=== PATIENT | female | born 1945 | race Caucasian/White ===

== ENCOUNTER 2016-10-22 17:05 | Emergency (ER) | payer OTHER ==
[~2016-10-22] VITALS: Ht 162.6 cm; Wt 67.4 kg
[~2016-10-22 17:05] MED LIST: ANTIVERT25 MG PO; VALIUM5 MG PO; ZOFRAN4 MG PO
[2016-10-22 18:09] LABS: HEMATOCRIT 40.3 % (36.0-46.0); MCH 28.9 PG (29.0-34.0); MCHC 35.2 G/DL (30.0-36.0); MCV 82.1 FL (83-99); MEAN PLAT.VOLUME 10.7 uM^3 (9.5-12.4); PLATELET COUNT 117 K/uL (156-360); RBC DIS.WIDTH-CV 12.5 % (11.8-14.6); RBC DIS.WIDTH-SD 36.6 % (39-53); RED BLOOD COUNT 4.91 M/uL (3.80-5.20); WHITE BLOOD COUNT 6.5 K/uL (4.1-10.2)
[2016-10-22 18:20] LABS: CHLORIDE 101 mEq/L (99-109); POTASSIUM 3.7 mEq/L (3.7-5.4); SODIUM 135 mEq/L (136-147)
[2016-10-22 18:22] LABS: GLUCOSE 115 mg/dL (70-99)
[2016-10-22 18:23] LABS: ANION GAP 12 MEQ/L (2-14)
[2016-10-22 18:26] LABS: GFR ESTIMATE (CALCULATED) 58 mL/min/
[2016-10-22 18:27] LABS: UREA NITROGEN (BUN) 15 mg/dL (9-23)
[2016-10-22 18:30] LABS: TROP-I INTERPRETATION NEGATIVE; TROPONIN-I < 0.01 ng/mL (0.0-0.30)
[2016-10-22 19:05] LABS: INFLUENZA A VIRAL ANTIGEN NEGATIVE; INFLUENZA B VIRAL ANTIGEN POSITIVE
[2016-10-22 19:52] LABS: ADD MIUA? YES; BILIRUBIN NEGATIVE; BLOOD SMALL; COLOR YELLOW ((YELLOW)); GLUCOSE (STRIP) NEGATIVE; KETONES 15; LEUKOCYTES MODERATE; NITRITE NEGATIVE; PH, URINE 5.5 (5-8); PROTEIN (STRIP) TRACE; SPECIFIC GRAVITY 1.025 (1.000-1.030); UROBILINOGEN 0.2 MG/DL (0.2-1.0)
[2016-10-22 20:14] LABS: BACTERIA 2+ /HPF; CASTS NONE SEEN /LPF; CRYSTALS NONE SEEN; EPITHELIAL CELLS 1+ /HPF; MUCUS 1+ /LPF; OTHER RENAL CELLS; RED BLOOD CELLS 0-5 /HPF (0-5)
[2016-10-22] MEDS ORDERED: TESSALON PERLE100 MG PO (21:06)
[2016-10-22 21:33] VITALS: BP 116/63
== END 2016-10-22 21:45 | disposition home or self-care (01) ==
LOC: EME 17:05
PROVIDERS: Emergency Medicine; Nurse Practitioner Family
DX: J10.1 Influenza due to other identified influenza virus with other respiratory manifestations (principal); R82.71 Bacteriuria; Z87.891 Personal history of nicotine dependence
CPT/HCPCS: 71020; 80048; 81003; 84484; 85027; 87502; 93005; 94640; 99281; 99285; J7030